=== PATIENT | male | born 1955 | race African-American/Black ===

== ENCOUNTER 2016-06-20 20:41 | Inpatient (IN) ==
[2016-06-20] MEDS ORDERED: MAGNESIUM HYDROXIDE SUSP 30 ML UDCUP PO PRN (21:09)
[2016-06-20] MEDS ORDERED: ONDANSETRON 4 MG/2 ML VIAL IV PRN (21:09)
[2016-06-20] MEDS ORDERED: ONDANSETRON 4 MG/2 ML VIAL IV STA (21:12)
[2016-06-20] MEDS ORDERED: HYDROmorphone 2 MG/1 ML VIAL IV STA (21:12)
--- NOTE | 2016-06-20 21:14 | Emergency Department Note ---
IEric Sierra, am scribing for, and in the presence of, Colby Calvo MD 21:13. Umesh Luke Robert M, MD, personally performed the services described in this documentation, ascribed by Patty Reyes in my presence, and it is both accurate and complete . Arrival - Arrival Chief Complaint: Fall Stated Complaint: left hip fx ED Nursing Triage Note: patient is a miguel angel. amputee, while at home outside pt. accidentally fell out of . tx from [facility] with left hip fracture. Mode of Arrival: Stretcher Limitations: No Limitations Source: Patient Time Seen by Provider: 06/20/16 21:07 - History of Present Illness HPI Narrative: Pt is a 61 y/o male that was transferred to the ED via EMS from [facility] with c/o left hip fracture that occurred a few hours ago. 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 Pt states the right wheel was spinning and caused his wheelchair to flip over and he fell out of his wheelchair. Pt reports he is having pain in his legs. No other complaints/pain in ED. Onset (ago): hour(s) Consistency: constant Severity: moderate Severity scale (1-10): 6 Quality: sharp Review of System - Review of System 12 point system: reviewed and no additional remarkable complaints except as stated - Review of System Constitutional: Absent: chills, fever Respiratory: Absent: cough Cardiovascular: Absent: chest pain Gastrointestinal: Absent: abdominal pain, nausea, vomiting Musculoskeletal: Present: leg pain, other (left hip pain s/p fall) Skin: Absent: rash Neurological: Absent: headache Psychiatric: Absent: anxiety Medical,Surgical,& Family Hx - Medical History Cardio: History of: CHF, Hypertension Endocrine: History of: Diabetes Mellitus (IDDM) Musculoskeletal: History of: Amputation (bill. lower ext.) - Social History Smoking Status: Never smoker Frequency of Alcohol Use: None Type of Drug Use: None Exam Vital Signs: Vital Signs Temperature 99.0 F 06/20/16 20:49 Pulse Rate 95 H 06/20/16 20:49 Respiratory Rate 19 06/20/16 20:49 Blood Pressure 178/56 06/20/16 20:49 O2 Sat by Pulse Oximetry 95 06/20/16 20:49 - General General appearance: alert, in no apparent distress - Head Head exam: Present: atraumatic, normocephalic - Eye Eye exam: Present: PERRL, EOMI - ENT ENT exam: Present: mucous membranes moist. Absent: mucous membranes dry - Neck Neck exam: Present: full ROM. Absent: tenderness - Chest Chest inspection: Present: symmetric chest wall rise. Absent: tenderness - Respiratory Respiratory exam: Present: normal lung sounds bilaterally. Absent: respiratory distress - Cardiovascular Cardiovascular exam: Present: regular rate, normal rhythm, normal heart sounds - Abdominal Exam Abdominal exam: Present: soft. Absent: tenderness - Extremities Exam Extremities exam: Present: other (AKA on right; BKA on left) - Expanded Lower Left Lower Hip/Pelvis exam: Present: tenderness (point tenderness in left hip). Absent: full ROM (limited ROM) - Back Exam Back exam: Present: full ROM. Absent: tenderness - Neurological Exam Neurological exam: Present: alert, oriented X3, CN II-XII intact. Absent: motor sensory deficit - Psychiatric Psychiatric exam: Present: normal affect, normal mood - Skin Skin exam: Present: warm, dry Disposition Clinical Impression: left femoral neck fracture, IDDM (insulin dependent diabetes mellitus), Lower limb amputation, unspecified level Case discussed with: patient, patient's family Disposition: Still a Patient Condition: Stable Instructions: Fall Prevention for Older Adults (ED) Time of Disposition: 21:14
[2016-06-20] MEDS ORDERED: ONDANSETRON 4 MG/2 ML VIAL ONE (21:30)
[2016-06-20] MEDS ORDERED: HYDROmorphone 2 MG/1 ML VIAL ONE (21:31)
[2016-06-20 21:53] LABS: Basophils % 0.1 % (0.0-0.8); Eosinophils # 0.1 10*3/uL (0.0-0.87); Eosinophils % 0.7 % (0.00-10.9); Immature Granulocytes % 0.5 %; Immature Granulocytes Absolute 0.05 #; Lymphocytes # 1.9 10*3/uL (1.4-4.0); Lymphocytes % 19.3 % (21.2-54.2); Mean Corpuscular Hemoglobin 27 PG (27-34); Mean Corpuscular Volume 87.3 FL (87-102); Mean Platelet Volume 11.8 FL (9.6-12.0); Monocytes # 0.7 10*3/uL (0.11-0.8); Monocytes % 7.3 % (1.7-12.7); Neutrophils # 7.2 10*3/uL (1.4-7.4); Neutrophils % 72.1 % (38.7-73.9); Platelet Count 222 T/CUMM (130-400); Red Blood Count 4.81 MC/CUMM (3.8-5.5); Red Cell Distribution Width 14.4 % (9.3-17.3); White Blood Count 9.9 T/CUMM (4-12)
[2016-06-20 22:22] LABS: Albumin 3.7 G/DL (3.4-5.0); Bilirubin,Total 0.7 MG/DL (0.2-1.0); Calcium 8.9 MG/DL (8.5-10.1); Potassium 4.5 MMOL/L (3.5-5.1); Total Protein 6.8 G/DL (6.4-8.3)
[2016-06-20] MEDS: SODIUM CHLORIDE 0.9% 1,000 ML IV SCH (23:20)
[2016-06-20] MEDS: HYDROmorphone 2 MG/1 ML VIAL IV PRN (23:20)
--- NOTE | 2016-06-21 00:18 | Hospitalist Consult Note ---
Assessment and Plan (1) Hip fracture, left Status: Acute Assessment and plan: per primary team Current Visit: Yes (2) IDDM (insulin dependent diabetes mellitus) Status: Acute Assessment and plan: no home meds available, will cover w SSI, check BS, once home meds known will add long/moderate active insulin Current Visit: Yes (3) HTN (hypertension) Status: Acute Assessment and plan: c/w home meds Current Visit: Yes (4) Lower limb amputation, unspecified level Status: Acute Current Visit: Yes (5) Elevated serum creatinine Status: Acute Assessment and plan: serum Cr 1.6, not clear if acute or chronic, check renal US and FeNa Current Visit: Yes History of Present Illness - Data of Consult Consult date: 06/20/16 Requesting Physician: Macho Pop - Consult Narrative Reason for consult: medical management History of present illness: Mr. Pop is a 61 year old male w DM type I and b/l BKA presented to ER after falling and in ER work up showed evidence for Lt hip Frx. Ortho service admitted and hospitalist service consulted for medical management. CC: Kamaljit Devi MD - Home Medications and Allergies Allergies/Adverse Reactions: Allergies Allergy/AdvReac Type Severity Reaction Status Date / Time No Known Allergies Allergy Verified 06/20/16 21:26 Medical,Surgical,& Family Hx - Medical History Cardio: History of: CHF, Hypertension HEENT: History of: Eye Problem (right eye) Endocrine: History of: Diabetes Mellitus (IDDM) Musculoskeletal: History of: Amputation (bill. lower ext.) Other: No history of: Anaphylaxis - Surgical History Cardiac Surgeries: Sugical HX of: Internal Defibrillator (2012) Thoracic Surgeries: Patient denies;: Organ Transplant Abdominal Surgeries: Patient denies: Abdominal Surgery Reproductive Surgeries: Patient denies;: Genitourinary Surgery - Social History Smoking Status: Never smoker Frequency of Alcohol Use: None Type of Drug Use: None 12 point system: reviewed and no additional remarkable complaints except as stated Exam - Constitutional Vitals: Period Temp Pulse Resp BP Sys/Spence Pulse Ox Last 24 Hr 94 12 171/77 97 Exam: General: a&ox3, NAD Neck: no JVD, supple Heart: s1s2, RRR Lung: reduced BS at lung bases, otherwise CTA, no wheezing abd: soft, NT Ext: b/l BKA. Skin: Warm and dry HEENT: PERRL Results - Labs CBC & BMP: 06/20/16 21:47 06/20/16 21:47 Specialty Discharge - Follow Up or Referrals
[2016-06-21] MEDS: INSULIN LISPRO 100 UNIT/ML SUBCUT SCH ×4 (01:42→19:08)
[2016-06-21] MEDS ORDERED: LABETALOL 20 MG/4 ML SYRINGE IV PRN (02:35)
[2016-06-21] MEDS ORDERED: hydrALAZINE 20 MG/1 ML VIAL IV PRN (02:35)
[2016-06-21 03:57] LABS: Apearance,Urine CLEAR (Clear); Bilirubin,Urine Negative (Negative); Blood, Urine Negative (Negative); Glucose,Urine (UA) >=500 mg/dL (Negative); Ketones,Urine Negative (Negative); Nitrite,Urine Negative (Negative); Protein,Urine Negative; Urine Color Yellow (Yellow); Urine Urobilinogen < 2.0 EU/DL (0.2-1.0); WBC,Urine 1 /HPF (0-6)
--- NOTE | 2016-06-21 06:06 | EKG Report ---
Stationary ECG Study [facility] Test Date: 06/21/2016 6:04:59 AM Pat Name: MAISHA GARZA Department: Room: 321 Gender: M Floor Layer: SS : 1955 Requested by: Kamaljit Devi Order Number: [id number] Reading MD: ALIZA LESTER Intervals [place] Rate: 85 P: 65 AR: 143 QRS: 36 QRSD: 103 T: 137 QT: 379 QTc: 421 Interpretive Statements SINUS RHYTHM WITH SINUS ARRHYTHMIA INFERIOR MYOCARDIAL INFARCTION, PROBABLY OLD POOR QUALITY TRACING Electronically Signed On 06-21-16 20:48:24 [employer] by ALIZA LESTER [email or web address]
[2016-06-21] MEDS: HYDROmorphone 2 MG/1 ML VIAL IV PRN (06:29)
[2016-06-21] MEDS ORDERED: FAMOTIDINE 20 MG/2 ML VIAL IV ONE (06:41)
--- NOTE | 2016-06-21 06:43 | Orthopedic History & Physical ---
Assessment and Plan (1) Fracture of femoral neck, closed Status: Acute Assessment and plan: Left femoral neck fracture: Injury with Mr. Pop in detail. I have recommended closed reduction and pinning to prevent displacement and allow for early mobilization. And benefits were discussed. In particular we discussed his increased risk of infection and delayed bone healing secondary to his diabetes. We also highlighted the risk of hardware failure due to his lack of bone quality. Risks, alternatives, and benefits to undergoing this procedure were discussed in great detail, the patient voiced understanding desire proceed. Risks discussed included, but were not limited to, bleeding, infection, damage to arteries and nerves, nonunion, malunion, need for revision surgery, as well as medical complications. Current Visit: Yes Qualifiers: Encounter type: initial encounter Laterality: left Qualified Code(s): S72.002A - Fracture of unspecified part of neck of left femur, initial encounter for closed fracture History of Present Illness Chief complaint: left hip pain History of present illness: Mr. Pop is a 61 year old male who had a fall from his wheelchair yesterday. He was evaluated at an outside facility notified femoral neck fracture. He was transferred here for further care. He has had bilateral transtibial amputation was done for complications due to diabetes. He'll complains of pain left hip. Allergies Allergy/AdvReac Type Severity Reaction Status Date / Time No Known Allergies Allergy Verified 06/20/16 21:26 12 point system: reviewed and no additional remarkable complaints except as stated Medical,Surgical,& Family Hx - Medical History Cardio: History of: CHF, Hypertension HEENT: History of: Eye Problem (right eye) Endocrine: History of: Diabetes Mellitus (IDDM) Musculoskeletal: History of: Amputation (bill. lower ext.) Other: No history of: Anaphylaxis - Surgical History Cardiac Surgeries: Sugical HX of: Internal Defibrillator (2012) Thoracic Surgeries: Patient denies;: Organ Transplant Abdominal Surgeries: Patient denies: Abdominal Surgery Reproductive Surgeries: Patient denies;: Genitourinary Surgery - Social History Smoking Status: Never smoker Frequency of Alcohol Use: None Type of Drug Use: None Exam - Constitutional Vitals: Period Temp Pulse Resp BP Sys/Spence Pulse Ox Last 24 Hr 98.2 F-98.7 F 94-99 12-18 147-171/77-82 92-97 Exam: General appearance: no acute distress Head exam: normal inspection Eye exam: EOMI Neck exam: normal inspection Respiratory exam: clear to auscultation bilaterally Cardiovascular exam: regular GI/Abdominal exam: normal bowel sounds Left lower extremity: Pain in the hip with internal/external rotation. Previous transtibial amputation. Results - Labs CBC & BMP: 06/20/16 21:47 06/20/16 21:47 - Diagnostic Findings Procedure: X-ray: image reviewed by me (minimally displaced left femoral neck fracture noted on pelvic x-ray)
[2016-06-21] MEDS ORDERED: ceFAZolin 2,000 MG in PREMIX 1 EACH IV ONE (06:44)
[2016-06-21] MEDS ORDERED: BACITRACIN OINT 0.9 GM PACK TOP ONE (08:53)
[2016-06-21] MEDS ORDERED: ACETAMINOPHEN 325 MG TABLET PO PRN (09:24)
[2016-06-21] MEDS ORDERED: MORPHINE 10 MG/10 ML VIAL ONE (09:39)
[2016-06-21] MEDS ORDERED: MIDAZOLAM 2 MG/2 ML VIAL ONE (09:39)
[2016-06-21] MEDS ORDERED: fentaNYL 100 MCG/2 ML VIAL ONE (09:40)
--- NOTE | 2016-06-21 10:37 | XRay Report ---
History: Hip fracture now postop ORIF Date: 06/21/2016 Study: Left hip single view Comparison exam: Left hip x-ray 06/20/2016 3 orthopedic screws stabilize the left hip fracture with near-anatomic alignment and positioning in this single projection. The left femoral head is well conjugated. There is osteopenia. Impression: Excellent alignment and positioning of the left femoral neck fracture following ORIF PROCEDURE INTERPRETED AT [facility] DEPARTMENT OF RADIOLOGY Final Report Signed by: Dr. Eliz Bailey
[2016-06-21] MEDS: ACETAMINOPHEN 500 MG TABLET PO SCH ×2 (13:40→21:43)
--- NOTE | 2016-06-21 14:14 | Anesthesia ---
Anesthesia Post OP - Post Ansesthetic Evaluation Patient seen in post op: Yes Resp: within normal limits CV: within normal limits Mental: within normal limits Temp: within normal limits [id number]: within normal limits Nausea and Vomiting: within normal limits Pain: within normal limits
--- NOTE | 2016-06-21 14:29 | XRay Report ---
History: Left hip fracture undergoing ORIF Date: 06/21/2016 Study: 2 views left hip performed during surgery Comparison exam: Left hip x-ray June 20, 2016 49.6 seconds of fluoroscopy time was utilized. 3 images were captured and archived. Films document placement of 3 surgical screws across the left femoral neck fracture by Dr. Devi. There is excellent alignment and position. Impression: Films document ORIF of the left femoral neck fracture PROCEDURE INTERPRETED AT [facility] DEPARTMENT OF RADIOLOGY Final Report Signed by: Dr. Eliz Bailey
--- NOTE | 2016-06-21 15:24 | Ultrasound Report ---
Renal ultrasound Indication: Elevated creatinine Comparison: None available Findings: Study limited by patient's recent surgery and positioning. Kidneys appear normal in size and echogenicity. Portion of the upper pole on the left kidney is obscured. No hydronephrosis or nephrolithiasis is seen. The right renal length is 8.9 cm. The left renal length is 7.6 cm. No free fluid or other abnormality is seen. Impression: No definite evidence of abnormality demonstrated. Ultrasound images stored and captured. PROCEDURE INTERPRETED AT [facility] DEPARTMENT OF RADIOLOGY Final Report Signed by: Dr. Artie Ralph
--- NOTE | 2016-06-21 15:56 | Hospitalist Progress Note ---
Assessment and Plan (1) Hip fracture, left Status: Acute Assessment and plan: Postop pinning by orthopedic surgery. Current Visit: Yes Qualifiers: Encounter type: initial encounter Fracture type: closed Qualified Code(s) : S72.002A - Fracture of unspecified part of neck of left femur, initial encounter for closed fracture (2) HTN (hypertension) Status: Acute Current Visit: Yes Qualifiers: Hypertension type: essential hypertension Qualified Code(s): I10 - Essential (primary) hypertension (3) IDDM (insulin dependent diabetes mellitus) Status: Chronic Current Visit: Yes Hospitalist: Subjective Interval history: Patient seen and examined postoperatively. No complaints. Tolerated procedure well. Asking for food. Exam - Constitutional Vitals: Period Temp Pulse Resp BP Sys/Spence Pulse Ox Last 24 Hr 97.6 F-98.7 F 85-99 12-18 147-178/74-102 92-100 General appearance: no acute distress - Head Head exam: Present: normal inspection, normocephalic - Respiratory Respiratory exam: Present: clear to auscultation bilaterally - Cardiovascular Cardiovascular exam: Present: regular rate and rhythm - GI/Abdominal GI/Abdominal exam: Present: normal bowel sounds, soft. Absent: tenderness, rebound - Extremities Exam Extremities exam: Absent: edema - Neurological Exam Neurological exam: Present: alert, oriented X3 - Psychiatric Psychiatric exam: Present: normal affect, normal mood Results - Labs CBC & BMP: 06/20/16 21:47 06/20/16 21:47 Lab Results: I have reviewed the past 24 hour labs Specialty Discharge - Follow Up or Referrals
[2016-06-21] MEDS: ceFAZolin 2,000 MG in PREMIX 1 EACH IV SCH ×2 (16:28→22:27)
[2016-06-21] MEDS: SODIUM CHLORIDE 0.9% 1,000 ML IV SCH (20:35)
[2016-06-22] MEDS: INSULIN LISPRO 100 UNIT/ML SUBCUT SCH ×4 (00:22→17:43)
[2016-06-22] MEDS: SODIUM CHLORIDE 0.9% 1,000 ML IV SCH ×3 (00:23→10:30)
[2016-06-22] MEDS: ACETAMINOPHEN 500 MG TABLET PO SCH ×2 (00:41→08:41)
[2016-06-22] MEDS ORDERED: ENOXAPARIN 40 MG/0.4 ML SYRINGE SUBCUT SCH (03:25)
[2016-06-22 06:47] LABS: Basophils % 0.2 % (0.0-0.8); Eosinophils # 0.4 10*3/uL (0.0-0.87); Eosinophils % 4.3 % (0.00-10.9); Hematocrit 36.8 VOL% (42.0-52.0); Hemoglobin 11.4 GM/DL (14.0-18.0); Immature Granulocytes % 0.5 %; Immature Granulocytes Absolute 0.04 #; Lymphocytes # 1.9 10*3/uL (1.4-4.0); Mean Corpuscular Hemoglobin 27 PG (27-34); Mean Corpuscular Volume 88.2 FL (87-102); Mean Platelet Volume 12.2 FL (9.6-12.0); Monocytes # 0.7 10*3/uL (0.11-0.8); Monocytes % 8.2 % (1.7-12.7); Neutrophils # 5.8 10*3/uL (1.4-7.4); Neutrophils % 65.8 % (38.7-73.9); Platelet Count 171 T/CUMM (130-400); Red Blood Count 4.17 MC/CUMM (3.8-5.5); Red Cell Distribution Width 14.6 % (9.3-17.3); White Blood Count 8.8 T/CUMM (4-12)
[2016-06-22 07:15] LABS: Calcium 8.7 MG/DL (8.5-10.1); Osmolality,Calculated 291.3 MOS/KG (273-304); Potassium 4.1 MMOL/L (3.5-5.1)
--- NOTE | 2016-06-22 10:27 | Hospitalist Progress Note ---
Assessment and Plan (1) Hip fracture, left Status: Acute Assessment and plan: Postop pinning by orthopedic surgery. Patient doing well and plan for discharge per orthopedic surgery. Current Visit: Yes Qualifiers: Encounter type: initial encounter Fracture type: closed Qualified Code(s) : S72.002A - Fracture of unspecified part of neck of left femur, initial encounter for closed fracture (2) HTN (hypertension) Status: Acute Current Visit: Yes Qualifiers: Hypertension type: essential hypertension Qualified Code(s): I10 - Essential (primary) hypertension (3) IDDM (insulin dependent diabetes mellitus) Status: Chronic Assessment and plan: Continue medications. Current Visit: Yes Hospitalist: Subjective Interval history: Patient seen and examined. Postop day #1 status post left hip pinning after fall from wheelchair. Patient looks and feels well. He denies any complaints. He is cleared for discharge from a hospitalist standpoint. Exam - Constitutional Vitals: Period Temp Pulse Resp BP Sys/Spence Pulse Ox Last 24 Hr 98.8 F-100.7 F 78-106 18-20 126-188/51-90 92-100 General appearance: no acute distress - Head Head exam: Present: normal inspection, normocephalic - Respiratory Respiratory exam: Present: clear to auscultation bilaterally - Cardiovascular Cardiovascular exam: Present: regular rate and rhythm - GI/Abdominal GI/Abdominal exam: Present: normal bowel sounds, soft. Absent: tenderness, rebound - Extremities Exam Extremities exam: Present: other (amputations noted. Incision site clean and dry.) - Neurological Exam Neurological exam: Present: alert, oriented X3 - Psychiatric Psychiatric exam: Present: normal affect, normal mood - Skin Skin exam: Present: normal color, warm, dry Results - Labs CBC & BMP: 06/22/16 06:28 06/22/16 06:28 Lab Results: I have reviewed the past 24 hour labs Specialty Discharge - Follow Up or Referrals
--- NOTE | 2016-06-22 10:35 | Discharge Summary ---
Hospital Course - Hospital Course Hospital Course: 61-year-old male with mid to the hospital for management of a left femoral neck fracture. He was transferred here from an outside facility. He was taken to the operating suite where he underwent fixation of his fracture without difficulty, he was transferred to the floor in stable condition postoperatively. He received routine antibiotics and thromboprophylaxis. He was seen by physical therapy therapy, once he was safe transferring, he was discharged home. Time of discharge his wound was clean and dry Diagnosis - Discharge Diagnosis (1) Fracture of femoral neck, closed Status: Acute Specialty Discharge - Follow Up or Referrals Discharge Plan - Discharge Data Disposition: Home Health Service Condition at Discharge: Stable Discharge Diet: advance to your usual diet Activity: resume usual activities as tolerated Hygiene: may shower Weight Bearing at Discharge: weight bear as tolerated Driving: not until seen by doctor Contact your physician if you experience:: fever over 101, Difficulty voiding, Redness or swelling, Nausea/Vomiting, Shortness of breath, Bleeding, pain uncontrolled by pain medications Wound / Dressing Care Instructions: Leave dressing in place until Tuesday, then change daily. Okay to shower, no tub soaks. Hansel out 07/01/2016 - Discharge Medications New Acetaminophen Tab [Tylenol Tab] 650 mg PO Q6H PRN #0 tablet PRN Reason: Pain Mild (1-3) HYDROcodone/ACETAMIN 7.5-325 [[place] 7.5-325] 1 tablet PO Q4H PRN #0 tablet PRN Reason: Pain Moderate (4-7) Continue Aspirin EC Tab 325 mg PO DAILY Furosemide Tab [Lasix Tab] 80 mg PO BID DIURETIC Simvastatin 40 mg PO BEDTIME Lisinopril 10 mg PO DAILY Cholecalciferol [Vitamin D3] 1,200 unit PO DAILY Metoprolol Tartrate 25 mg PO BID - Follow Up or Referral Follow Up: Kamaljit Devi MD [Physician] - 2 Weeks - Forms/Instructions Instructions: Fall Prevention for Older Adults (ED) Additional Discharge Instructions: Weight-bear as tolerated left lower extremity Exam - Constitutional Vitals: Period Temp Pulse Resp BP Sys/Spence Pulse Ox Last 24 Hr 98.8 F-100.7 F 78-106 18-20 126-188/51-90 92-100 Discharge Results Procedures and tests throughout hospitalization: Pending Orders 06/21/16 07:28 Creatinine,Urine Random Routine Sodium, Urine Random Routine 06/23/16 04:00 Comp Blood Count Auto Diff IN AM 06/24/16 04:00 Comp Blood Count Auto Diff IN AM Labs on day of discharge: Labs from last 24 hours 06/22/16 06/22/16 06/22/16 06:28 06:28 05:44 WBC 8.8 RBC 4.17 Hgb 11.4 L Hct 36.8 L MCV 88.2 MCH 27 MCHC 31.0 L RDW 14.6 Plt Count 171 D MPV 12.2 H Neut % (Auto) 65.8 Lymph % (Auto) 21.0 L [place] % (Auto) 8.2 Eos % (Auto) 4.3 Baso % (Auto) 0.2 Neut # (Auto) 5.8 Lymph # (Auto) 1.9 [place] # (Auto) 0.7 Eos # (Auto) 0.4 Baso # (Auto) 0.0 Immature Gran % 0.5 Nucleated RBC % 0.0 Immature Gran # 0.04 Nucleated RBCs # 0.00 Sodium 141 Potassium 4.1 Chloride 102 Carbon Dioxide 25 Anion Gap 18.1 H BUN 19 H Creatinine 1.60 H GFR Calculation 63 BUN/Creatinine Ratio 11.00 Glucose 268 H POC Glucose 215 H Calculated Osmolality 291.3 Calcium 8.7 06/21/16 06/21/16 06/21/16 23:41 18:54 11:35 WBC RBC Hgb Hct MCV MCH MCHC RDW Plt Count MPV Neut % (Auto) Lymph % (Auto) [place] % (Auto) Eos % (Auto) Baso % (Auto) Neut # (Auto) Lymph # (Auto) [place] # (Auto) Eos # (Auto) Baso # (Auto) Immature Gran % Nucleated RBC % Immature Gran # Nucleated RBCs # Sodium Potassium Chloride Carbon Dioxide Anion Gap BUN Creatinine GFR Calculation BUN/Creatinine Ratio Glucose POC Glucose 97 408 H 219 H Calculated Osmolality Calcium DS: Provider Date of admission: 06/20/16 21:10 Primary care physician: . No PCP Attending physician on admission: Kamaljit Devi MD Consults: 06/21/16 09:24 Consult to Occupational Therapy [CONS] Routine Reason for Occupational Therapy: Evaluate and Treat Start Therapy: Tomorrow Consult to Physical Therapy [CONS] Routine Reason for Physical Therapy: Evaluate and Treat Start Therapy: Tomorrow 06/21/16 09:26 Consult to Case Mgmt/Social Srvs [CONS] Routine Reason for Case Mgmt/Social Srvs: Home Health Rehab Equipment Discharging clinician: Kamaljit Devi MD
[2016-06-22 16:09] VITALS: BP 182/74
== END 2016-06-22 18:41 | disposition home health service (06) | DRG 482 ==
LOC: N.ED 20:41 → N.EDINP 21:10 → N.3E 21:42
PROVIDERS: ADMIT Orthopaedic Surgery; ATTEND Orthopaedic Surgery